=== PATIENT | male | born 1980 | race Caucasian/White ===

== ENCOUNTER → 2018-11-01 | Emergency (ER) | payer OTHER ==
[~2018-11-01] VITALS: Ht 167.6 cm; Wt 81.7 kg
[~2018-11-01] MED LIST: AMOXICILLIN875 MG PO; EXCEDRIN CAPLE1 EACH PO; HYDROCODONE-AP1 EAC6 PO; MEDROLDOSEPACK PO; NAPROSYN500 MG PO; PROMETHAZINE-C120 ML PO; TIZANIDINE HCL4 MG PO; TRAMADOL 50 MG50 MG PO; VENTOLIN HFA 1818 GM INH; ZANAFLEX4 MG PO; ZPAK PO
[2018-11-01 11:18] VITALS: BP 133/91
== END ==
LOC: ER 10:39
DX: M70.22 Olecranon bursitis, left elbow (principal); Y93.89 Activity, other specified